=== PATIENT | male | born 1975 | race Caucasian/White ===

== ENCOUNTER 2024-06-20 21:32 | Emergency (ER) | payer OTHER, SELFPAY ==
[2024-06-20 21:40] VITALS: BP 157/95
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
[2024-06-20] MEDS: KEFLEX 500 MG PO (22:59)
[2024-06-20 23:01] VITALS: BP 129/89
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
== END 2024-06-20 23:19 | disposition home or self-care (01) ==
LOC: EMR 21:32
PROVIDERS: EMERGENCY PHYSICIAN Emergency Medicine; FAMILY PHYSICIAN Family Medicine
DX: T65.91XA Toxic effect of unspecified substance, accidental (unintentional), initial encounter (principal); T24.602A Corrosion of second degree of unspecified site of left lower limb, except ankle and foot, initial encounter; T24.601A Corrosion of second degree of unspecified site of right lower limb, except ankle and foot, initial encounter; R50.9 Fever, unspecified
CPT/HCPCS: 99283